=== PATIENT | male | born 1990 ===

== ENCOUNTER → 2016-09-15 | Outpatient (REF) | payer OTHER ==
[2016-09-15 15:40] LABS: % NORMAL FORMS < 4 % (>=4); IMMOTILITY 79 %; NON PROGRESSIVE MOTILITY (c) 11 %; PROGRESSIVE MOTILITY (a) 10 % (>=32); SPERM# 61.3 M/Ejac (33-46); TOTAL FUNCTIONAL 0.5 M/Ejac.; TOTAL MOTILITY 21 % (>=40); TOTAL PROGRESSIVE SPERM 6.4 M/Ejac.
== END ==
LOC: M LAB REF 15:35
PROVIDERS: ATTEND Physician Assistant Medical
DX: Z31.41 Encounter for fertility testing (principal)

== ENCOUNTER → 2016-12-25 | Outpatient (REF) | payer OTHER ==
[2016-12-26 09:42] LABS: % NORMAL FORMS < 4 % (>=4); IMMOTILITY 0 %; NON PROGRESSIVE MOTILITY (c) 0 %; PROGRESSIVE MOTILITY (a) 0 % (>=32); TOTAL MOTILITY 0 % (>=40)
[2016-12-26 09:43] LABS: SPERM# 0 M/Ejac (>=39); TOTAL FUNCTIONAL 0 M/Ejac.; TOTAL PROGRESSIVE SPERM 0 M/Ejac.
== END ==
LOC: M LAB REF 15:44
PROVIDERS: ATTEND Specialist
DX: N46.9 Male infertility, unspecified (principal)